=== PATIENT | male | born 1995 | race Caucasian/White ===

== ENCOUNTER 2021-07-09 07:17 | Emergency (ER) | payer OTHER ==
[2021-07-09] MEDS ORDERED: Ibuprofen 600 MG Tab PO ONE (07:41)
[2021-07-09] MEDS ORDERED: Acetaminophen 325 MG Tab PO ONE (07:41)
[2021-07-09 08:28] LABS: CORONAVIRUS COVID-19 NAA NEGATIVE (NEGATIVE); INFLUENZA A NAA NEGATIVE (NEGATIVE); INFLUENZA B NAA NEGATIVE (NEGATIVE)
[2021-07-09 08:41] VITALS: BP 118/74; PULSE 93
== END 2021-07-09 08:36 | disposition home or self-care (01) ==
LOC: MW.ED 07:17
DX: B34.9 Viral infection, unspecified (principal); Z20.822 Contact with and (suspected) exposure to COVID-19
CPT/HCPCS: 0240U; 87651; 99283; A9270